=== PATIENT | female | born 1955 | race Caucasian/White ===

== ENCOUNTER 2018-01-09 14:38 | Emergency (ER) | payer OTHER ==
[2018-01-09] MEDS ORDERED: diphenhydrAMINE INJ 50 MG/ML VIAL IVP STA (14:58)
[2018-01-09] MEDS ORDERED: METOCLOPRAMIDE 10 MG/2 ML VIAL IVP STA (14:58)
[2018-01-09] MEDS ORDERED: SODIUM CHLORIDE 0.9% 1,000 ML IV ONE (14:58)
--- NOTE | 2018-01-09 15:01 | ED Physician Documentation ---
History of Present Illness - Stated complaint Stated Complaint: THROWING UP AND HEADACHE - Chief complaint Chief Complaint: Abd Pain - History obtained from History obtained from: Patient, Family - History of Present Illness Timing: Prior to arrival Pain level max: 5 Pain level now: 5 Quality: Throbbing - Additonal information Additional information: 62-year-old female no past medical history here with complaint of headache frontal and occipital associated with nausea vomiting prior to coming to the emergency room. Patient states his history of headaches every 6 months not been worked up nor seen a neurologist for patient denies any trauma, travel or recent illness.Denies any family history of hypertension, brain bleed, stroke, migraine. Review of Systems Ten Systems: 10 systems reviewed and negative Constitutional: reports: Chills (And only in the ER.). denies: Fever, Myalgias Eyes: reports: Photophobia. denies: Loss of vision, Decreased vision Ears: denies: Ear pain Nose: denies: Rhinorrhea / runny nose, Congestion Throat: denies: Sore throat Cardiac: denies: Chest pain / pressure Respiratory: denies: Dyspnea, Cough GI: reports: Nausea, Vomiting. denies: Abdominal Pain, Constipation, Diarrhea Musculoskeletal: denies: Neck pain, Back pain Neurologic: reports: Headache. denies: Generalized weakness, Focal weakness, Numbness, Difficulty speaking, Near syncope, Syncope, Seizure, Confused, Altered mental status, Head injury, LOC PD PAST MEDICAL HISTORY - Present Medications Home Medications: Ambulatory Orders Medication Instructions Recorded Confirmed Ondansetron Odt [Zofran] 4 mg TL Q6H PRN #10 tablet 01/09/18 - Allergies Allergies/Adverse Reactions: Allergies Allergy/AdvReac Type Severity Reaction Status Date / Time Sulfa (Sulfonamide Allergy Hives Verified 01/09/18 14:49 Antibiotics) codeine AdvReac Nausea Verified 01/09/18 14:49 morphine AdvReac Nausea Verified 01/09/18 14:49 PD ED PE NORMAL - Vitals Vital signs reviewed: Yes - General General: Alert and oriented X 3, No acute distress, Well developed/nourished, Other (Patient keeping her eyes closed because the lights bother her.) - HEENT HEENT: Atraumatic, PERRL, EOMI, Moist mucous membranes, Pharynx benign - Neck Neck: Supple, no meningeal sign - Cardiac Cardiac: RRR, No murmur - Respiratory Respiratory: No respiratory distress, Clear bilaterally - Abdomen Abdomen: Normal bowel sounds, Soft, Non tender, Non distended - Back Back: No CVA TTP, No spinal TTP - Derm Derm: Normal color, Warm and dry, No rash - Extremities Extremities: No deformity - Neuro Neuro: Alert and oriented X 3, saw straightener 2-12 intact, No motor deficit, No sensory deficit, Normal speech - Psych Psych: Normal mood, Normal affect Results - Vitals Vitals: Vital Signs - 24 hr 01/09/18 01/09/18 01/09/18 14:46 16:43 18:20 Temperature 35.8 C L 36.6 C Heart Rate 92 85 85 Respiratory 20 16 14 Rate Blood Pressure 154/84 H 133/62 H 147/82 H O2 Saturation 99 96 95 Oxygen O2 Source Room air - Labs Labs: Laboratory Tests 01/09/18 01/09/18 01/09/18 15:00 15:00 15:00 WBC 8.4 RBC 4.87 Hgb 14.8 Hct 43.1 MCV 88.5 MCH 30.5 MCHC 34.5 RDW 13.1 Plt Count 228 MPV 7.4 L Neut # (Auto) 7.4 H Lymph # (Auto) 0.7 L [place] # (Auto) 0.2 Eos # (Auto) 0.0 Baso # (Auto) 0.1 Absolute Nucleated RBC 0.00 Nucleated RBC % 0.0 ESR 1 Sodium 133 L Potassium 3.6 Chloride 94 L Carbon Dioxide 26 Anion Gap 13.0 BUN 14 Creatinine 0.5 Estimated GFR (MDRD) 125 Glucose 135 H Calcium 9.1 Total Bilirubin 0.8 AST 34 ALT 28 Alkaline Phosphatase 45 Total Protein 7.8 Albumin 4.3 Globulin 3.5 Albumin/Globulin Ratio 1.2 Lipase 35 PD MEDICAL DECISION MAKING - ED course Complexity details: re-evaluated patient, considered differential (Tension headache, migraine headache intracranial bleed,), d/w patient, d/w family ED course: 1558 patient seems to be sleeping but easily arousable. She states she still has 5/10 throbbing headache. Will try Toradol. Patient requesting for the lights to be turned off. 172 patient states her pain still there but no longer nauseous and was requesting for ice chips. We will try fentanyl. Discussed test results and headache workup which includes lumbar puncture. Risk and benefits discussed. Patient states that she will not require a spinal tap. 1848 patient states her headache is much better. And would like to go home. Patient does not appear to be in any acute distress and nontoxic-appearing. States has hydrocodone at home. We will send her home with Zofran. She will follow-up with her PCP for neurology follow-up and referral. If worse will come back to the emergency room. Departure - Departure Disposition: Home, Self Care Clinical Impression: Vomiting Qualifiers: Vomiting type: unspecified Vomiting Intractability: non-intractable Nausea presence: with nausea Qualified Code(s): R11.2 - Nausea with vomiting, unspecified Headache Qualifiers: Headache type: other headache syndrome Qualified Code(s): G44.89 - Other headache syndrome Condition: Stable Instructions: ED Cephalgia Unspecified, Diet Clear Liquid Dc, ED Nausea Vomiting Prescriptions: Ondansetron Odt [Zofran] 4 mg TL Q6H PRN #10 tablet PRN Reason: Nausea / Vomiting Comments: Maintain safety when taking your hydrocodone for pain. Take the prescribed Zofran for nausea. Follow-up with your primary doctor this week for reevaluation and a referral to a neurologist. If worse return to the emergency room.
[2018-01-09 15:22] LABS: BASOPHILS # (AUTO) 0.1 10^3/uL (0.0-0.1); HGB - HEMOGLOBIN 14.8 g/dL (12.0-16.0); LYMPHOCYTES # (AUTO) 0.7 10^3/uL (1.5-3.5); MEAN CORPUSCULAR HEMOGLOBIN 30.5 pg (27.0-31.0); MEAN CORPUSCULAR HGB CONC 34.5 g/dL (32.0-36.0); MEAN CORPUSCULAR VOLUME 88.5 fL (81.0-99.0); MEAN PLATELET VOLUME 7.4 fL (7.9-10.8); MONOCYTES # (AUTO) 0.2 10^3/uL (0.0-1.0); MONOCYTES % (AUTO) 2.9 %; NEUTROPHILS # (AUTO) 7.4 10^3/uL (1.5-6.6); NEUTROPHILS % (AUTO) 88.1 %; PLT - PLATELET COUNT 228 10^3/uL (130-450); RED BLOOD COUNT 4.87 10^6/uL (4.20-5.40); RED CELL DISTRIBUTION WIDTH 13.1 % (12.0-15.0); WHITE BLOOD COUNT 8.4 x10^3/uL (4.8-10.8)
--- NOTE | 2018-01-09 15:26 | CT Report ---
Reason: headache Procedure Date: 01/09/2018 Accession Number: [id number] / [id number] Procedure: CT - Head W/O CPT Code: FULL RESULT: EXAM: CT HEAD EXAM DATE: 01/09/2018 03:21 PM. CLINICAL HISTORY: Headache. COMPARISON: None. TECHNIQUE: Multiaxial CT images were obtained from the foramen magnum to the vertex. Reformats: Sagittal and coronal. IV contrast: None. In accordance with CT protocol optimization, one or more of the following dose reduction techniques were utilized for this exam: automated exposure control, adjustment of mA and/or KV based on patient size, or use of iterative reconstructive technique. FINDINGS: Parenchyma: No intraparenchymal hemorrhage. No evidence of mass, midline shift, or CT findings of infarction. Holloway-white differentiation is distinct. Extraaxial Spaces: Normal for age. No subdural or epidural collections identified. Ventricles: Normal in size and position. Sinuses and Orbits: Imaged paranasal sinuses, orbits, and mastoids show no significant abnormality. Bones: No evidence of fracture or calvarial defect. Other: None. IMPRESSION: No acute intracranial abnormality. [facility]
[2018-01-09 15:30] LABS: ALBUMIN 4.3 g/dL (3.2-5.5); ALBUMIN/GLOBULIN RATIO 1.2 (1.0-2.2); BILIRUBIN,TOTAL 0.8 mg/dL (0.2-1.0); CALCIUM 9.1 mg/dL (8.5-10.3); CREATININE 0.5 mg/dL (0.4-1.0); TOTAL PROTEIN 7.8 g/dL (6.7-8.2)
[2018-01-09] MEDS ORDERED: KETOROLAC 60 MG/2 ML VIAL IVP STA (16:02)
[2018-01-09] MEDS ORDERED: fentaNYL 100 MCG/2 ML VIAL IVP STA (17:28)
[2018-01-09 18:51] LABS: BILIRUBIN,URINE NEGATIVE (NEGATIVE); GLUCOSE, URINE (UA) NEGATIVE (NEGATIVE); KETONES,URINE (UA) NEGATIVE (NEGATIVE); LEUKOCYTE ESTERASE, URINE NEGATIVE (NEGATIVE); NITRITE,URINE NEGATIVE (NEGATIVE); OCCULT BLOOD,URINE NEGATIVE (NEGATIVE); PROTEIN,URINE NEGATIVE (NEGATIVE); UROBILINOGEN,URINE 0.2 (NORMAL) E.U./dL (NORMAL)
[2018-01-09 18:58] LABS: CLARITY,URINE CLEAR (CLEAR)
[2018-01-09 19:15] VITALS: BP 132/86
[2018-01-09] MEDS ORDERED: ONDANSETRON ODT 4 MG Prepack 2 TL PRN (19:28)
[2018-01-09] MEDS ORDERED: ONDANSETRON ODT 4 MG Prepack 2 TL STA (19:36)
== END 2018-01-09 19:47 | disposition home or self-care (01) ==
LOC: ED 14:38
DX: G44.89 Other headache syndrome (principal); R11.2 Nausea with vomiting, unspecified
CPT/HCPCS: 36415; 62270; 70450; 80053; 81003; 83690; 85025; 85651; 96361; 96374; 96375; 99284; J1200; J2765; 81001; 87086